=== PATIENT | female | born 2005 | race Caucasian/White ===

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

== ENCOUNTER 2024-03-03 07:17 | Emergency (ER) | payer SELFPAY ==
[2024-03-03 07:17] VITALS: BP 139/109; PULSE 97; RESP 14; TEMP 36.6; O2SAT 100
--- NOTE | 2024-03-03 07:28 | ED.RN ---
BROUGHT PT TO ER ROOM FROM [facility], PT HAD TO BE ASKED REPEATEDLY TO SIT UP IN THE WC SO SHE WOULDN'T FALL OUT OF IT. ASKED PT WHAT WAS GOING ON AND HER BF STARTED TO ANSWER FOR HER. EXPLAINED PT NEEDED TO ANSWER PART OF OUR WAY OF ASSESSING HER WELL. THIS NURSE KNELT DOWN IN FRONT OF PT AND QUIETLY ASKED QUESTIONS AND TRIED TO GET INFORMATION OUT OF THE PT. ENCOURAGED PT TO SLOW HER BREATHING DOWN AND EXPLAINED THE EFFECTS OF HYPERVENTILATING. PT GAVE VERY FEW ANSWERS AND KEPT STATING SHE DIDN'T KNOW. AT THIS TIME THIS NURSE LOOKED TO BF FOR ANSWERS. PT WAS ASKED TO STAND OUT OF WC AND SIT ON THE BED. PT WAS HESITANT TO DO THAT EVEN WITH NURSE AT SIDE. PER BF PT DID WALK INTO THE URGENT CARE PRIOR TO COMING TO ER THIS MORNING AND WAS ALSO AT WORK. ONCE PT WAS ON BED PT HAD TO BE GIVEN TISSUE BECAUSE SHE WAS SITTING LEANING OVER WITH SNOT RUNNING OUT HER NOSE AND HANGING TOWARDS THE FLOOR. THIS NURSE THEN PLACED A GOWN NEXT TO HER AND EXPLAINED WHAT CLOTHES NEEDED TO BE TAKEN OFF AND HOW THE GOWN NEEDED TO BE PUT ON. ASKED IF SHE FELT SHE COULD DO THAT AND THEN SHE STARTED SCREAMING TO HER BF THAT HE NEEDED TO HELP HER AND THAT THE NURSE OBVIOUSLY WASN'T GOING TO. HE ATTEMPTED TO CALM HER BUT SHE CONTINUED TO SCREAM IN THE ROOM. THIS WAS AN IMPROVEMENT SINCE THE PT APPEARED TO BE TOO SICK TO TALK INITIALLY.
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
[2024-03-03] MEDS: Ondansetron 4 MG/2 ML Vial IV (08:01)
[2024-03-03] MEDS: Morphine 4 MG/ML Syringe IV (08:02)
[2024-03-03] MEDS: 0.9% Normal Saline (1000mL) 1,000 ML 999 ML IV (08:02)
[2024-03-03 08:05] VITALS: BMI 18.2
[2024-03-03 08:06] LABS: Absolute Lymphocyte Count 1.27 X10^3/uL (0.83-4.51); Absolute Neutrophil Count 7.7 X10^3/uL (2.0-7.7); Basophil# 0.05 X10^3/uL; Basophil% 0.5 % (0-1); Eosinophil# 0.01 X10^3/uL; Eosinophils% 0.1 % (0-5); Hemoglobin 14.2 g/dL (12.0-15.0); Lymphocyte # 1.27 X10^3/ul (0.83-4.51); Lymphocyte % 12.7 % (19-41); Mean Corp Hgb Conc 33.8 g/dL (32-36); Mean Corpuscular Hgb 28.1 pg (27.0-32.0); Mean Corpuscular Volume 83.2 fL (81-99); Monocyte# 0.92 X10^3/uL; Monocyte% 9.2 % (0-10); NRBC Flagged by Analyzer 0 % (0-5); Neutrophil # 7.73 X10^3/uL (2.7-7.7); Neutrophil % 77.2 % (47-70); Platelet Count 259 K/mm3 (150-450); RBC Distribution Width CV 13.1 % (11.6-14.6); RBC Distribution Width SD 39.8 fl (35.1-43.9); Red Blood Count 5.05 M/mm3 (4.2-5.4)
[2024-03-03 08:18] LABS: Internal QC Validated? YES +Cl - CLEAR BKGD; Pregnancy, Serum, hCG Quali. NEGATIVE Negative
[2024-03-03 08:23] LABS: ALB/GLOB Ratio 0.9 RATIO (0.9-2.4); AST(SGOT) 20 U/L (15-37); Alanine Aminotransfer ALT/SGPT 23 U/L (13-56); Albumin, Serum 3.9 g/dL (3.2-5.0); Alkaline Phosphatase 85 U/L (45-117); Anion Gap 12 (5-15); BUN 13 mg/dL (7-18); BUN/Creat Ratio 17.7 RATIO (10-20); Calcium,Total 10.1 mg/dL (8.5-10.1); Chloride 107 mmol/L (98-107); Creatinine, Serum 0.73 mg/dL (0.55-1.02); EST Glomerular Filtration Rate 108 mL/min (>60); Est Glom Filt Rate - Afr Amer 131 mL/min (>60); Estimated Creatinine Clearance 94.32 ml/min; Globulin 4.4 g/dL (2.2-4.2); Glucose 120 mg/dL (74-106); Lipase 24 U/L (13-75); Potassium 3.5 mmol/L (3.5-5.1); Protein, Total 8.3 g/dL (6.4-8.2); Sodium Level 139 mmol/L (136-145)
[2024-03-03 08:44] LABS: Mucous, Urine 0 SEEN /hpf (<or=2+); Red Blood Cells-Urine 0 SEEN /hpf (0-5); Squamous Epithelial Cells - UA 0 SEEN /hpf (5-10)
[2024-03-03 08:50] LABS: Color, Urine Yellow (Yellow); Glucose, Dipstick Normal (Normal); Leukocyte Esterase-Dipstick 100 /ul (Negative); Nitrite-Dipstick Negative (Negative); Occult Blood-Urine 10 /ul (Negative); Protein-Dipstick 30 mg/dl (Negative); Specific Gravity, Urine 1.025 (1.002-1.030); Urine Clarity Sl. Cloudy (Clear); Urine Urobilinogen 1 mg/dl (Normal)
[2024-03-03 08:52] LABS: Urine Bilirubin Dipstick 1 mg/dL (Negative)
[2024-03-03 08:53] LABS: Ketone-Dipstick 150 mg/dl (Negative)
[2024-03-03 08:57] LABS: Bacteria 4+ /hpf (None Seen); White Blood Cells 0-5 SEEN /hpf (0-5)
[2024-03-03 09:16] VITALS: BP 125/73; PULSE 72; RESP 16; TEMP 36.4; O2SAT 99
== END 2024-03-03 09:19 | disposition home or self-care (01) ==
PROVIDERS: Emergency Provider Emergency Medicine; Visit Provider Emergency Medicine
DX: U07.1 COVID-19 (principal); R11.2 Nausea with vomiting, unspecified; R10.9 Unspecified abdominal pain; F17.290 Nicotine dependence, other tobacco product, uncomplicated
CPT/HCPCS: 80053; 81001; 83690; 84703; 85025; 87631; 96361; 96374; 96375; 99283; J7030; A4216; J2405

== ENCOUNTER 2024-11-02 19:47 | Emergency (ER) | payer OTHER, SELFPAY ==
[2024-11-02 19:48] VITALS: BP 136/53; PULSE 100; RESP 20; TEMP 36; O2SAT 99; BMI 21.3
--- NOTE | 2024-11-02 21:00 | US_ITS ---
PROCEDURE: TRANSVAGINAL W/PREG US 11/02/2024 REASON FOR EXAM: VAGINAL BLEEDING TECHNIQUE: High resolution obstetric ultrasound performed using a 2D transducer. Standard views obtained, including biometry, anatomy survey, and Doppler studies. COMPARISON: None. FINDINGS Single live intrauterine with a gestational sac measuring 3.1 cm. Estimated gestational age by crown-rump length is 8 weeks 0 days. A yolk sac is visualized. heart rate is 169 beats per minute. SHRUTI by ultrasound 06/13/2025. SHRUTI by LMP 06/15/2025. Small anechoic 1.00.5 x 0.3 cm region adjacent to the gestational sac likely representing subchorionic hematoma. Uterus measures 10.8 x 9.0 x 6.1 cm. No masses. No free fluid in the cul-de-sac. Right ovary measures 3.9 x 2.7 x 1.7 cm. Small follicle. Preserved vascular flow. Left ovary measures 2.9 x 2.0 x 1.6 cm. Preserved vascular flow. US/Transvaginal w/Preg US IMPRESSION: Single live intrauterine . Small subchorionic hematoma. Reading Location: [place] [id number]
[2024-11-02 21:23] LABS: Mucous, Urine 0 SEEN /hpf (<or=2+); White Blood Cells 0 SEEN /hpf (0-5)
[2024-11-02 21:25] LABS: Absolute Lymphocyte Count 2.06 X10^3/uL (0.83-4.51); Absolute Neutrophil Count 7.8 X10^3/uL (2.0-7.7); Basophil# 0.03 X10^3/uL; Basophil% 0.3 % (0-1); Eosinophil# 0.05 X10^3/uL; Eosinophils% 0.5 % (0-5); Hematocrit 36.9 % (37-47); Lymphocyte # 2.06 X10^3/ul (0.83-4.51); Lymphocyte % 19.2 % (19-41); Mean Corp Hgb Conc 35.2 g/dL (32-36); Mean Corpuscular Hgb 30.2 pg (27.0-32.0); Mean Corpuscular Volume 85.8 fL (81-99); Mean Platelet Vol. 10.2 fl (6.2-12.0); Monocyte# 0.77 X10^3/uL; Monocyte% 7.2 % (0-10); NRBC Flagged by Analyzer 0 % (0-5); Neutrophil # 7.79 X10^3/uL (2.7-7.7); Neutrophil % 72.6 % (47-70); Platelet Count 282 K/mm3 (150-450); RBC Distribution Width CV 12.5 % (11.6-14.6); RBC Distribution Width SD 39.2 fl (35.1-43.9); White Blood Count 10.7 K/mm3 (4.4-11.0)
[2024-11-02 21:26] LABS: Color, Urine Yellow (Yellow); Glucose, Dipstick Normal (Normal); Ketone-Dipstick 5 mg/dl (Negative); Leukocyte Esterase-Dipstick Negative /ul (Negative); Nitrite-Dipstick Negative (Negative); Occult Blood-Urine 250 /ul (Negative); Protein-Dipstick 15 mg/dl (Negative); Specific Gravity, Urine 1.025 (1.002-1.030); Urine Bilirubin Dipstick Negative (Negative); Urine Clarity Sl. Cloudy (Clear); Urine Urobilinogen Normal (Normal)
[2024-11-02 21:32] LABS: Bacteria 1+ /hpf (None Seen); Red Blood Cells-Urine 0-5 SEEN /hpf (0-5); Squamous Epithelial Cells - UA 0-5 SEEN /hpf (5-10)
[2024-11-02 21:46] LABS: Anion Gap 12 (5-15); BUN 11 mg/dL (4-19); BUN/Creat Ratio 22.8 RATIO (10-20); Calcium,Total 9.8 mg/dL (7.6-11.0); Carbon Dioxide 21.8 mmol/L (21.0-32.0); Chloride 102 mmol/L (98-108); Creatinine, Serum 0.49 mg/dL (0.70-1.20); EST Glomerular Filtration Rate 138 (>60); Glucose 93 mg/dL (70-99); Potassium 3.8 mmol/L (3.3-5.1); Sodium Level 136 mmol/L (133-145)
[2024-11-02 21:47] VITALS: BP 112/82; PULSE 74; RESP 16; O2SAT 98
--- NOTE | 2024-11-02 22:09 | ED.VIS.FEGU ---
HPI HPI - Female History of Present Illness Chief Complaint: Vag Bld, Preg Narrative Narrative: Chief complaint and HPI: Vaginal bleeding in early . 19-year-old female who is A1 and 9 weeks presents for evaluation of vaginal bleeding. Patient states that she had a early miscarriage in April. States she follows with [facility] [employer]. States she had an ultrasound performed approximately 1 week ago that showed viable IUP. Patient states this evening she developed small amounts of blood in her underwear in which she became worried and presented for evaluation. She denies any significant bleeding. Denies any fever, chills, shortness of breath, chest pain, abdominal/pelvic pain, dysuria. Review of systems: See HPI Medications: As listed on the chart Allergies: As listed on the chart PFSH: Per chart Vital signs: As listed on the chart. Reviewed. Physical exam: Gen: A&O x3, NAD Head: Normocephalic, atraumatic Eyes: No sclera icterus, conjunctiva clear ENT: Moist mucous membranes Neck: Trachea midline, No JVD CV: RRR, no murmurs, no peripheral edema Resp: Lungs CTA BL, no w/r/c GI: Abd soft, non-distended, non-tender, no r/r/g : No CVA tenderness. Pelvic: Normal external genitalia. No lesions, masses, or rashes appreciated. + Vaginal bleeding from the cervix. Cervix is non-friable and closed. No cervical motion tenderness appreciated. Musc: Full ROM, no deformity Skin: Warm, dry Neuro: Alert, oriented, grossly intact, sensation intact Psych: Cooperative, appropriate mood and affect [facility] Medications ?Medication ?Instructions ?Recorded ?Last Taken ?Type etonogestrel 0.12 mg-ethinyl 1 vag ring vaginal QMONTH 03/11/22 Unknown History estradiol 0.015 mg/24 hr vaginal ring (NuvaRing) ondansetron 4 mg disintegrating 4 mg PO Q8H PRN PRN Nausea #10 tabs 03/03/24 Unknown Rx tablet cephalexin 500 mg capsule 500 mg PO BID 7 days #14 caps 11/02/24 Unknown Rx Allergy/AdvReac Type Severity Reaction Status Date / Time No Known Allergies Allergy Verified 11/02/24 19:48 Social History (Updated 03/03/24 @ 07:[address] Kyle Dial, DO) Smoking Status: Current every day smoker tobacco type: e-cigarettes substance use type: marijuana EXAM Physical Exam Const Vital Signs: 11/02/24 19:48 11/02/24 21:47 11/02/24 23:12 Temperature 96.8 F L 98.0 F Temperature Source Temporal Pulse Rate 100 74 70 Respiratory Rate 20 H 16 18 Blood Pressure 136/53 H 112/82 H 118/62 Blood Pressure Mean 80 92 80 Pulse Ox 99 98 100 Oxygen Delivery Method Room Air MDM MDM MDM Narrative Medical decision making narrative: 19-year-old female who is A1 and 9 weeks presents for evaluation of vaginal bleeding. Denies any abdominal pain. Differential diagnosis includes but is not limited to normal bleeding in first trimester, miscarriage, subchorionic hematoma, UTI. Laboratory workup ordered including transvaginal ultrasound. CBC without leukocytosis or anemia. BMP relatively unremarkable. Quantitative hCG 128,005. UA shows mild ketones with blood. This is consistent with patient's vaginal bleeding. However she does have 1+ bacteria without obvious signs of infection. Given patient is however will treat for asymptomatic bacteriuria with Keflex. She will be given first dose here. She was informed of this and confirmed understanding. Ultrasound shows a single live intrauterine . She has a small subchorionic hematoma. heart rate 169. SHRUTI by ultrasound is 06/13/2025. She is 8 weeks and 0 days. Patient's vaginal bleeding is likely secondary to this. I did consult her [employer] office and spoke to the manufacturing coordinator. She agrees no further management at this time. No need for blood typing or RhoGAM given that patient is only 8 weeks. Follow-up in their office. Return precautions explained. Patient agreement understands plan. Impression: 1. Subchorionic hematoma 2. Vaginal bleeding in first trimester 3. Asymptomatic bacteriuria in Lab Data Labs: Laboratory Results - last 24 hr 11/02/24 21:15 WBC 10.7 RBC 4.30 Hgb 13.0 Hct 36.9 L MCV 85.8 MCH 30.2 MCHC 35.2 RDW Std Deviation 39.2 RDW Coeff of Lucho 12.5 Plt Count 282 MPV 10.2 Immature Gran % (Auto) 0.200 Neut % (Auto) 72.6 H Lymph % (Auto) 19.2 Stevens % (Auto) 7.2 Eos % (Auto) 0.5 Baso % (Auto) 0.3 Absolute Neuts (auto) 7.8 H Absolute Lymphs (auto) 2.06 Nucleated RBC % 0 Sodium 136 Potassium 3.8 Chloride 102 Carbon Dioxide 21.8 Anion Gap 12 BUN 11 Creatinine 0.49 L Estim Creat Clear Calc 151.50 Est GFR (MDRD) Non-Af 138 BUN/Creatinine Ratio 22.8 H Glucose 93 Calcium 9.8 HCG, Quant 316506 H Urine Color Yellow Urine Clarity Sl. Cloudy Urine pH 6.0 Ur Specific [place] 1.025 Urine Protein 15 H Urine Glucose (UA) Normal Urine Ketones 5 H Urine Occult Blood 250 H Urine Nitrite Negative Urine Bilirubin Negative Urine Urobilinogen Normal Ur Leukocyte Esterase Negative Urine RBC 0-5 SEEN Urine WBC 0 SEEN Ur Squamous Epith Cells 0-5 SEEN Urine Bacteria 1+ Urine Mucus 0 SEEN Radiography Diagnostic Testing: Clinical Impression(s) from Imaging Studies Obstetrics Ultrasound 11/02/24 21:00 IMPRESSION: Single live intrauterine . Small subchorionic hematoma. Reading Location: [id number] Discharge Plan Triage Chief Complaint: Vag Bld, Preg ED Provider: Adama Melendrez Dx/Rx/DC Orders Clinical Impression: Subchorionic hematoma in first trimester Instructions: : Subchorionic Hematoma Prescriptions: New cephalexin 500 mg capsule 500 mg PO BID 7 Days Qty: 14 0RF No Action etonogestrel-ethinyl estradiol [NuvaRing] 0.12-0.015 mg/24 hr Ring 1 vag ring VAGINAL QMONTH ondansetron 4 mg tablet,disintegrating 4 mg PO Q8H PRN PRN (Reason: Nausea) Qty: 10 0RF Primary Care Provider: Care Physician,Katt Primary Referrals: Follow-up with your [employer] at [facility] [Other] - 3-5 Days Activity Restrictions/Additional Instructions: Follow-up with OB. Return back to the ED if symptoms change or worsen. You did have some bacteria in her your urine. No urinary tract infection. However given that you are we will treat this to prevent urinary tract infection. You received your first dose here in the emergency department. Print Language: Gabonese Disposition Disposition: Home, Self Care Discharge Date/Time: 11/02/24 23:14
[2024-11-02 22:10] LABS: hCG Titer Quant., Serum 128005 mIU/mL (<9 non-preg)
[2024-11-02] MEDS: Cephalexin 250 MG Capsule 500 MG PO (23:09)
[2024-11-02 23:12] VITALS: BP 118/62; PULSE 70; RESP 18; TEMP 36.7; O2SAT 100
== END 2024-11-02 23:14 | disposition home or self-care (01) ==
PROVIDERS: Emergency Provider Surgery; Visit Provider Surgery
DX: O20.9 Hemorrhage in early pregnancy, unspecified (principal); O26.891 Other specified pregnancy related conditions, first trimester; R82.71 Bacteriuria; O99.331 Smoking (tobacco) complicating pregnancy, first trimester; F17.290 Nicotine dependence, other tobacco product, uncomplicated; O99.321 Drug use complicating pregnancy, first trimester; F12.90 Cannabis use, unspecified, uncomplicated; Z3A.09 9 weeks gestation of pregnancy
CPT/HCPCS: 76817; 80048; 81001; 84702; 85025; 99283; A4216

== ENCOUNTER 2024-11-10 16:38 | Emergency (ER) | payer OTHER, SELFPAY ==
[2024-11-10 16:38] VITALS: BP 127/73; PULSE 88; RESP 13; TEMP 36.5; O2SAT 100; BMI 21.2
[2024-11-10] MEDS: Ondansetron 4 MG/2 ML Vial IV (17:40)
[2024-11-10] MEDS: 0.9% Normal Saline (1000mL) 1,000 ML 999 ML IV ×2 (17:40→18:44)
[2024-11-10 18:08] LABS: Anion Gap 13 (5-15); BUN 4 mg/dL (4-19); Calcium,Total 9.3 mg/dL (7.6-11.0); Carbon Dioxide 19.3 mmol/L (21.0-32.0); Chloride 103 mmol/L (98-108); Creatinine, Serum 0.39 mg/dL (0.70-1.20); EST Glomerular Filtration Rate 146 (>60); Estimated Creatinine Clearance 190.34 ml/min (50-250); Glucose 87 mg/dL (70-99); Potassium 3.4 mmol/L (3.3-5.1); Sodium Level 135 mmol/L (133-145)
--- NOTE | 2024-11-10 18:15 | EDS_ITS ---
HPI History of Present Illness Chief Complaint: Nausea/Vomiting/Diarrhea Narrative Narrative: Patient is a 19-year-old female with no known significant past medical history who is currently 9 weeks G1, P0 with 1 miscarriage previously. She presents to the emergency department this evening with a chief complaint of nausea vomiting diarrhea. Patient states that she has had nausea vomiting for several weeks she states that she is on vitamin B12 and Zofran as well as vitamins. She states that she has not been able to keep ending down for the past few days and she called her OB therefore she came here for further evaluation management. States that she already had an appointment with her [employer] and they had a ultrasound performed and this did confirm intrauterine per the patient. Patient denies or sick contacts denies abdominal pain. [facility] Medical History History of miscarriage Home Medications ?Medication ?Instructions ?Recorded ?Last Taken ?Type etonogestrel 0.12 mg-ethinyl 1 vag ring vaginal QMONTH 03/11/22 Unknown History estradiol 0.015 mg/24 hr vaginal ring (NuvaRing) ondansetron 4 mg disintegrating 4 mg PO Q8H PRN PRN Na usea #10 tabs 03/03/24 Unknown Rx tablet cephalexin 500 mg capsule 500 mg PO BID 7 days #14 cap s 11/02/24 Unknown Rx cephalexin 500 mg capsule 500 mg PO BID 5 days #10 cap s 11/10/24 Unknown Rx ondansetron 4 mg disintegrating 4 mg PO Q6H PRN nausea and 11/10/24 Unknown Rx tablet vomiting #20 tabs Allergy/AdvReac Type Severity Reaction Status Date / Time No Known Allergies Allergy Verified 11/10/24 16:41 Social History Smoking Status: Former smoker substance use type: marijuana ROS ROS ED ROS Narrative Constitutional: Denies fevers, chills, headaches Abdomen: Complains of nausea vomiting diarrhea as noted above denies any abdominal pain : Denies painful urination, hematuria, polyuria, vaginal spotting, vaginal discharge Neurological: Denies numbness, weakness, tingling Musculoskeletal: Denies back pain Skin: Denies any rashes or lesions EXAM Physical Exam Narrative Exam Narrative: General: Patient lying in bed rest comfortably did not appear to be acute distress Head: Atraumatic, normocephalic Eyes: PERRL bilaterally, EOMI bilateral, no conjunctival injection noted Neck: Soft, supple, trachea midline Cardiovascular: Regular rate and rhythm no murmurs gallops rubs noted Respiratory: Clear to auscultation bilaterally Abdomen: Soft, nondistended, no tenderness palpation Extremities: +5/5 strength noted in the bilateral upper and lower extremities Neurological: Patient following commands knew that she was at [facility] year is 2024 Skin: Warm, dry, intact no rashes or lesions noted Const Vital Signs: 11/10/24 16:38 11/10/24 18:46 11/10/24 20:00 Temperature 97.7 F L 98.7 F Temperature Source Oral Oral Pulse Rate 88 70 77 Respiratory Rate 13 15 14 Blood Pressure 127/73 H 91/64 117/69 Blood Pressure Mean 91 73 85 Pulse Ox 100 97 100 Oxygen Delivery Method Room Air Room Air Room Air 11/10/24 20:44 Temperature 98.7 F Temperature Source Pulse Rate 77 Respiratory Rate 14 Blood Pressure 117/69 Blood Pressure Mean 85 Pulse Ox 100 Oxygen Delivery Method MDM MDM MDM Narrative Medical decision making narrative: Patient is a 19-year-old female who presents to the emergency department chief complaint of nausea vomiting diarrhea in the setting of . On the d ifferential diagnose includes but not limited to viral gastroenteritis, electrolyte abnormality, UTI, asymptomatic bacteria in . Once workup is obtained reviewed she will be reevaluated. Patient will be given IV fluids Patient's urinalysis reviewed and showed 25 leukocyte esterase 0-5 white cells however she had 2+ bacteria she was given a gram of Rocephin this send for culture. Patient's sodium normal 135, potassium normal 3.4, creatinine was 0.39. On reevaluation the patient she is feeling much improved and she would like to go home. Patient will be given prescription for Keflex as well as Zofran ODT. She is advised to follow-up with her [employer] and return with worsening symptoms or concerns. She is agreeable to plan all course concerns answered she is discharged home in stable condition. Lab Data Labs: Laboratory Results - last 24 hr 11/10/24 11/10/24 17:33 18:56 Sodium 135 Potassium 3.4 Chloride 103 Carbon Dioxide 19.3 L Anion Gap 13 BUN 4 Creatinine 0.39 L Estim Creat Clear Calc 190.34 Est GFR (MDRD) Non-Af 146 BUN/Creatinine Ratio 9.0 L Glucose 87 Calcium 9.3 Urine Color Yellow Urine Clarity Sl. Cloudy Urine pH 6.5 Ur Specific [place] 1.015 Urine Protein 15 H Urine Glucose (UA) Normal Urine Ketones 50 H Urine Occult Blood 25 H Urine Nitrite Negative Urine Bilirubin Negative Urine Urobilinogen Normal Ur Leukocyte Esterase 25 H Urine RBC 0 SEEN Urine WBC 0-5 SEEN Ur Squamous Epith Cells 5-10 SEEN Urine Bacteria 2+ Urine Mucus 0 SEEN Discharge Plan Triage Chief Complaint: Nausea/Vomiting/Diarrhea ED Provider: Eugene Hunt Dx/Rx/DC Orders Clinical Impression: Nausea & vomiting, Currently Prescriptions: New cephalexin 500 mg capsule 500 mg PO BID 5 Days Qty: 10 0RF ondansetron 4 mg tablet,disintegrating 4 mg PO Q6H PRN (Reason: nausea and vomiting) Qty: 20 0RF No Action etonogestrel-ethinyl estradiol [NuvaRing] 0.12-0.015 mg/24 hr Ring 1 vag ring VAGINAL QMONTH ondansetron 4 mg tablet,disintegrating 4 mg PO Q8H PRN PRN (Reason: Nausea) Qty: 10 0RF cephalexin 500 mg capsule 500 mg PO BID 7 Days Qty: 14 0RF Primary Care Provider: Care Physician,Katt Primary Referrals: Care Physician,No Primary [Primary Care Provider] - Activity Restrictions/Additional Instructions: Follow-up with your [employer]ER. Use Zofran as prescribed it is a dissolvable tablet that goes under your tongue. Take the antibiotic that was sent to your pharmacy as prescribed. Follow-up on the culture results with your doctor as well to ensure that you are on the appropriate antibiotic. Return with any other concerns Print Language: American Disposition Disposition: Home, Self Care
[2024-11-10 18:46] VITALS: BP 91/64; PULSE 70; RESP 15; O2SAT 97
[2024-11-10 19:01] LABS: Mucous, Urine 0 SEEN /hpf (<or=2+); Red Blood Cells-Urine 0 SEEN /hpf (0-5)
[2024-11-10 19:05] LABS: Color, Urine Yellow (Yellow); Glucose, Dipstick Normal (Normal); Ketone-Dipstick 50 mg/dl (Negative); Leukocyte Esterase-Dipstick 25 /ul (Negative); Nitrite-Dipstick Negative (Negative); Occult Blood-Urine 25 /ul (Negative); Protein-Dipstick 15 mg/dl (Negative); Specific Gravity, Urine 1.015 (1.002-1.030); Urine Bilirubin Dipstick Negative (Negative); Urine Clarity Sl. Cloudy (Clear); Urine Urobilinogen Normal (Normal); Urine pH 6.5 (5.0 - 8.0)
[2024-11-10 19:19] LABS: Bacteria 2+ /hpf (None Seen); Squamous Epithelial Cells - UA 5-10 SEEN /hpf (5-10); White Blood Cells 0-5 SEEN /hpf (0-5)
[2024-11-10] MEDS: Ceftriaxone 1 GM/50 ML BAG IV (19:31)
[2024-11-10 20:00] VITALS: BP 117/69; PULSE 77; RESP 14; TEMP 37.1; O2SAT 100
[2024-11-10 20:44] VITALS: BP 117/69; PULSE 77; RESP 14; TEMP 37.1; O2SAT 100
== END 2024-11-10 21:21 | disposition home or self-care (01) ==
PROVIDERS: Emergency Provider Emergency Medicine; Referring Provider Emergency Medicine; Visit Provider Emergency Medicine
DX: O21.8 Other vomiting complicating pregnancy (principal); R19.7 Diarrhea, unspecified; Z3A.09 9 weeks gestation of pregnancy; Z87.891 Personal history of nicotine dependence; Z79.899 Other long term (current) drug therapy
CPT/HCPCS: 80048; 81001; 87077; 87086; 87088; 87186; 96361; 96365; 96366; 96375; 99282; A4216; J2405